=== PATIENT | female | born 1970 | race American Indian/Alaskan Native ===

== ENCOUNTER 2019-03-17 14:47 | Emergency (ER) | payer OTHER ==
--- NOTE | 2019-03-17 15:12 | Emergency Department Report ---
Chief Complaint: Chest Pain Stated Complaint: (L) SIDE PAIN Time Seen by Provider: 03/17/19 15:09 - HPI History of Present Illness: SHARP L SIDED CP FOR 2 DAYS NO SOB POS CIG POS ETOH NO DRUGS RX NONE PMH HX BELLS PALSY PSH CHOLEY BREAST FIBROID CSEC HERNIA MSE COMPLETED - Exam Vital Signs: Vital Signs 03/17/19 14:51 Temperature 97.8 F Pulse Rate 63 Respiratory 16 Rate Blood Pressure 132/75 O2 Sat by Pulse 100 Oximetry MSE screening note: Focused history and physical exam performed. Due to findings the following was ordered: ED Disposition for MSE Condition: Stable
[2019-03-17 15:52] LABS: Basophils # (Auto) 0.1 K/mm3 (0.0-0.1); Basophils % (Auto) 1.7 % (0.0-1.8); Eosinophils # (Auto) 0.1 K/mm3 (0.0-0.4); Eosinophils % (Auto) 3.1 % (0.0-4.3); Hematocrit 32.8 % (30.3-42.9); Lymphocytes # (Auto) 1.9 K/mm3 (1.2-5.4); Lymphocytes % (Auto) 43.8 % (13.4-35.0); Mean Corpuscular HGB Conc 33 % (30-34); Mean Corpuscular Volume 83 fl (79-97); Monocytes # (Auto) 0.3 K/mm3 (0.0-0.8); Monocytes % (Auto) 6.8 % (0.0-7.3); Platelet Count 253 K/mm3 (140-440); Red Blood Count 3.95 M/mm3 (3.65-5.03); Red Cell Distribution Width 18.2 % (13.2-15.2)
[2019-03-17] MEDS ORDERED: IBUPROFEN PO ONE (16:01)
[2019-03-17 16:07] LABS: Alanine Aminotransferase 10 units/L (7-56); Albumin 4.1 g/dL (3.9-5); BUN/Creatinine Ratio 10; Blood Urea Nitrogen 6 mg/dL (7-17); Calcium 9.3 mg/dL (8.4-10.2); Hemolysis Index 4
[2019-03-17 16:34] LABS: Bilirubin,Urine NEG (Negative); Blood,Urine NEG (Negative); Color,Urine Yellow (Yellow); Mucus,Urine FEW /HPF; Protein,Urine <15 mg/dL mg/dL (Negative); Urobilinogen,Urine < 2.0 mg/dL (<2.0)
--- NOTE | 2019-03-17 16:39 | XRay Report ---
PROCEDURE: XR CHEST ROUTINE 2V TECHNIQUE: PA and lateral views of the chest were obtained. HISTORY: Chest Pain COMPARISONS: None FINDINGS: Heart size and pulmonary vasculature appear normal. No evidence of pulmonary edema or pleural effusio n. No acute infiltrates or masses are seen. No acute bone abnormalities are identified. IMPRESSION: No evidence of acute cardiac or pulmonary process.. This document is electronically signed by Mike Mccurdy MD., March 17 2019 04:37:31 PM ET
--- NOTE | 2019-03-17 16:45 | Emergency Department Report ---
ED Chest Pain HPI - General Chief Complaint: Chest Pain Stated Complaint: (L) SIDE PAIN Time Seen by Provider: 03/17/19 15:09 Source: patient Mode of arrival: Ambulatory Limitations: No Limitations - History of Present Illness Initial Comments: Patient is a 48-year-old female who presents to ED complaining of left-sided chest pain radiating to her R shoulder and arm 2 days. Patient states that pain is aching in nature. She denies shortness of breath, fever, nausea vomiting, headache, trauma injuries or fall. MD Complaint: chest pain Severity scale (0 -10): 10 - Related Data Previous Rx's Medication Instructions Recorded Last Taken Type Carbamide Peroxide [Ear Wax 15 ml OT BID 4 Days #1 bottle 11/20/18 Unknown Rx Removal] Loperamide HCl [Imodium A-D] 2 mg PO DAILY #14 capsule 11/20/18 Unknown Rx Neomy/Polymyx B/Hc (Otic) Soln 4 drops TID 5 Days #1 bottle 11/20/18 Unknown Rx [Cortisporin (Otic) Soln] Ondansetron [Zofran Odt] 4 mg PO Q8HR PRN #8 tab.rapdis 11/20/18 Unknown Rx Naproxen [Naprosyn] 500 mg PO BID #30 tablet 03/17/19 Unknown Rx Allergies Allergy/AdvReac Type Severity Reaction Status Date / Time acetaminophen [From Percocet] Allergy Itching Verified 11/20/18 14:46 oxycodone [From Percocet] Allergy Itching Verified 11/20/18 14:46 Penicillins Allergy Itching Verified 11/20/18 14:46 propoxyphene Allergy Itching Verified 11/20/18 14:46 [From Darvocet-N] Heart Score - HEART Score History: Slightly suspicious EKG: Normal Age: 45-65 Risk factors: No known risk factors Troponin: < normal limit HEART Score: 1 ED Review of Systems ROS: Stated complaint: (L) SIDE PAIN Other details as noted in HPI Comment: All other systems reviewed and negative ED Past Medical Hx - Past Medical History Previous Medical History?: No - Surgical History Past Surgical History?: Yes Hx Cholecystectomy: Yes Hx Breast Surgery: Yes (reduction) Additional Surgical History: hernia repair. fibroid removal - Social History Smoking Status: Never Smoker Substance Use Type: Alcohol - Medications Home Medications: Home Medications Medication Instructions Recorded Confirmed Last Taken Type Carbamide Peroxide [Ear Wax 15 ml OT BID 4 Days #1 bottle 11/20/18 Unknown Rx Removal] Loperamide HCl [Imodium A-D] 2 mg PO DAILY #14 capsule 11/20/18 Unknown Rx Neomy/Polymyx B/Hc (Otic) Soln 4 drops TID 5 Days #1 bottle 11/20/18 Unknown Rx [Cortisporin (Otic) Soln] Ondansetron [Zofran Odt] 4 mg PO Q8HR PRN #8 tab.rapdis 11/20/18 Unknown Rx Naproxen [Naprosyn] 500 mg PO BID #30 tablet 03/17/19 Unknown Rx ED Physical Exam - General Limitations: No Limitations General appearance: alert, in no apparent distress - Head Head exam: Present: atraumatic, normocephalic - Eye Eye exam: Present: normal appearance - ENT ENT exam: Present: mucous membranes moist - Neck Neck exam: Present: normal inspection - Respiratory Respiratory exam: Present: normal lung sounds bilaterally, chest wall tenderness. Absent: respiratory distress - Cardiovascular Cardiovascular Exam: Present: regular rate, normal rhythm. Absent: systolic murmur, diastolic murmur, rubs, gallop - GI/Abdominal GI/Abdominal exam: Present: soft, normal bowel sounds - Extremities Exam Extremities exam: Present: normal inspection, full ROM - Back Exam Back exam: Present: normal inspection, full ROM. Absent: tenderness - Neurological Exam Neurological exam: Present: alert, oriented X3 - Psychiatric Psychiatric exam: Present: normal affect, normal mood - Skin Skin exam: Present: warm, dry, intact, normal color. Absent: rash ED Course Vital Signs 03/17/19 14:51 Temperature 97.8 F Pulse Rate 63 Respiratory 16 Rate Blood Pressure 132/75 O2 Sat by Pulse 100 Oximetry BOY score - Boy Score Age > 65: (0) No Aspirin use within the Past 7 Days: (0) No 3 or more CAD Risk Factors: (0) No 2 or more Angina events in past 24 hrs: (0) No Known CAD with more than 50% Stenosis: (0) No Elevated Cardiac Markers: (0) No ST Deviation Greater than 0.5mm: (0) No BOY Score: 0 ED Medical Decision Making - Lab Data Result diagrams: 03/17/19 15:32 03/17/19 15:32 - Radiology Data Radiology results: report reviewed, image reviewed HISTORY: Chest Pain COMPARISONS: None FINDINGS: Heart size and pulmonary vasculature appear normal. No evidence of pulmonary edema or pleural effusion. No acute infiltrates or masses are seen. No acute bone abnormalities are identified. IMPRESSION: No evidence of acute cardiac or pulmonary process.. This document is electronically signed by Mike Mccurdy MD., March 17 2019 04:37:31 PM ET Transcribed By: DFN Dictated By: MIKE MCCURDY MD Electronically Authenticated By: MIKE MCCURDY MD Signed Date/Time: 03/17/19 4497 Critical care attestation.: If time is entered above; I have spent that time in minutes in the direct care of this critically ill patient, excluding procedure time. ED Disposition Clinical Impression: Acute costochondritis, Atypical chest pain Disposition: -01 TO HOME OR SELFCARE Is pt being admited?: No Does the pt Need Aspirin: No Condition: Stable Instructions: Chest Pain (ED), Costochondritis (ED) Additional Instructions: Make sure to follow up with the primary care physician as discussed. Take all your medications as you've been prescribed. If you have any worsening symptoms or develop new symptoms please return to ED immediately. Prescriptions: Naproxen [Naprosyn] 500 mg PO BID #30 tablet Referrals: ANNITA FELICIANO MD [Primary Care Provider] - 3-5 Days Forms: Accompanied Note, Work/School Release Form(ED) Time of Disposition: 16:53
[2019-03-17] MEDS ORDERED: FLEXERIL PO ONE (17:01)
[2019-03-17 21:12] VITALS: BP 132/75
== END 2019-03-17 17:12 | disposition home or self-care (01) ==
LOC: ED 14:47
DX: M94.0 Chondrocostal junction syndrome [Tietze] (principal); Z88.0 Allergy status to penicillin; Z88.5 Allergy status to narcotic agent; Z90.49 Acquired absence of other specified parts of digestive tract
CPT/HCPCS: 36415; 71046; 80053; 81001; 84484; 85025; 93005; 93010; 99284

== ENCOUNTER 2020-09-20 06:22 | Emergency (ER) | payer SELFPAY ==
[2020-09-20 07:32] VITALS: BP 149/84
[2020-09-20 08:12] LABS: Bacteria,Urine 1+ /HPF (Negative); Bilirubin,Urine NEG (Negative); Blood,Urine MOD (Negative); Color,Urine Yellow (Yellow); Protein,Urine <15 mg/dL mg/dL (Negative)
[2020-09-20 08:20] LABS: Basophils % (Auto) 0.5 % (0.0-1.8); Eosinophils # (Auto) 0.3 K/mm3 (0.0-0.4); Eosinophils % (Auto) 5.2 % (0.0-4.3); Hematocrit 31.6 % (30.3-42.9); Hemoglobin 10.8 gm/dl (10.1-14.3); Lymphocytes # (Auto) 1.7 K/mm3 (1.2-5.4); Lymphocytes % (Auto) 32.6 % (13.4-35.0); Mean Corpuscular HGB Conc 34 % (30-34); Mean Corpuscular Volume 84 fl (79-97); Monocytes # (Auto) 0.6 K/mm3 (0.0-0.8); Platelet Count 218 K/mm3 (140-440); Red Blood Count 3.78 M/mm3 (3.65-5.03); Red Cell Distribution Width 16.8 % (13.2-15.2)
[2020-09-20 09:08] LABS: Alanine Aminotransferase 8 units/L (7-56); Albumin 3.6 g/dL (3.9-5); Blood Urea Nitrogen 8 mg/dL (7-17); Calcium 8.3 mg/dL (8.4-10.2); Hemolysis Index 4
[2020-09-20 09:14] LABS: BUN/Creatinine Ratio 13
--- NOTE | 2020-09-20 09:20 | Emergency Department Report ---
ED General Adult HPI - General Chief complaint: Abdominal Pain Stated complaint: ABDOMINAL PAIN Time Seen by Provider: 09/20/20 08:58 Source: patient Mode of arrival: Ambulatory Limitations: No Limitations - History of Present Illness Initial comments: This is a 50-year-old female who states that she did a home test and it was positive. She went to the emergency department last week and had a negative test. She states that her hemoglobin was 13 at that time. She returns to the emergency department stating she still lower abdominal pain. She has a history of the same associated with uterine fibroids. 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 She denies any difficulty urinating or any change in her bowel movements. She has had no fever or chills. She appears to be seeking follow-up in the emergency department in due to insurance issues. She states her last period was in June but she has had irregular bleeding since. She has no active bleeding. -: Gradual, week(s) Radiation: non-radiation Quality: dull Consistency: intermittent Improves with: none Worsens with: none Associated Symptoms: denies other symptoms Treatments Prior to Arrival: none - Related Data Previous Rx's Medication Instructions Recorded Last Taken Type Carbamide Peroxide [Ear Wax 15 ml OT BID 4 Days #1 bottle 11/20/18 Unknown Rx Removal] Loperamide HCl [Imodium A-D] 2 mg PO DAILY #14 capsule 11/20/18 Unknown Rx Neomy/Polymyx B/Hc (Otic) Soln 4 drops TID 5 Days #1 bottle 11/20/18 Unknown Rx [Cortisporin (Otic) Soln] Ondansetron [Zofran Odt] 4 mg PO Q8HR PRN #8 tab.rapdis 11/20/18 Unknown Rx Cyclobenzaprine [Flexeril] 10 mg PO QHS PRN #20 tablet 03/17/19 Unknown Rx Naproxen [Naprosyn] 500 mg PO BID #30 tablet 03/17/19 Unknown Rx Ferrous Gluconate [Ferrous 324 mg PO TID #20 tablet 09/20/20 Unknown Rx Gluconate 324 MG] Nitrofurantoin Carbon/M-Cryst 100 mg PO Q12HR #14 capsule 09/20/20 Unknown Rx [Macrobid CAP] traMADoL [Ultram 50 MG tab] 50 mg PO Q6HR PRN #10 tablet 09/20/20 Unknown Rx Allergies Allergy/AdvReac Type Severity Reaction Status Date / Time acetaminophen [From Percocet] Allergy Itching Verified 11/20/18 14:46 oxycodone [From Percocet] Allergy Itching Verified 11/20/18 14:46 Penicillins Allergy Itching Verified 11/20/18 14:46 propoxyphene Allergy Itching Verified 11/20/18 14:46 [From Darvocet-N] ED Review of Systems ROS: Stated complaint: ABDOMINAL PAIN Other details as noted in HPI Constitutional: denies: chills, fever Eyes: denies: eye pain, eye discharge, vision change ENT: denies: ear pain, throat pain Respiratory: denies: cough, shortness of breath, wheezing Cardiovascular: denies: chest pain, palpitations Endocrine: no symptoms reported Gastrointestinal: abdominal pain. denies: nausea, diarrhea Genitourinary: as per HPI, abnormal menses. denies: urgency, dysuria, discharge Musculoskeletal: denies: back pain, joint swelling, arthralgia Skin: denies: rash, lesions Neurological: denies: headache, weakness, paresthesias Psychiatric: denies: anxiety, depression Hematological/Lymphatic: denies: easy bleeding, easy bruising ED Past Medical Hx - Past Medical History Previous Medical History?: No - Surgical History Hx Cholecystectomy: Yes Hx Breast Surgery: Yes (reduction) Additional Surgical History: hernia repair. fibroid removal - Social History Smoking Status: Never Smoker Substance Use Type: None - Medications Home Medications: Home Medications Medication Instructions Recorded Confirmed Last Taken Type Carbamide Peroxide [Ear Wax 15 ml OT BID 4 Days #1 bottle 11/20/18 Unknown Rx Removal] Loperamide HCl [Imodium A-D] 2 mg PO DAILY #14 capsule 11/20/18 Unknown Rx Neomy/Polymyx B/Hc (Otic) Soln 4 drops TID 5 Days #1 bottle 11/20/18 Unknown Rx [Cortisporin (Otic) Soln] Ondansetron [Zofran Odt] 4 mg PO Q8HR PRN #8 tab.rapdis 11/20/18 Unknown Rx Cyclobenzaprine [Flexeril] 10 mg PO QHS PRN #20 tablet 03/17/19 Unknown Rx Naproxen [Naprosyn] 500 mg PO BID #30 tablet 03/17/19 Unknown Rx Ferrous Gluconate [Ferrous 324 mg PO TID #20 tablet 09/20/20 Unknown Rx Gluconate 324 MG] Nitrofurantoin Carbon/M-Cryst 100 mg PO Q12HR #14 capsule 09/20/20 Unknown Rx [Macrobid CAP] traMADoL [Ultram 50 MG tab] 50 mg PO Q6HR PRN #10 tablet 09/20/20 Unknown Rx ED Physical Exam - General Limitations: No Limitations General appearance: alert, in no apparent distress - Head Head exam: Present: atraumatic, normocephalic - Eye Eye exam: Present: normal appearance. Absent: scleral icterus - ENT ENT exam: Present: mucous membranes moist - Neck Neck exam: Present: normal inspection - Respiratory Respiratory exam: Present: normal lung sounds bilaterally. Absent: respiratory distress - Cardiovascular Cardiovascular Exam: Present: regular rate, normal rhythm. Absent: systolic murmur, diastolic murmur, rubs, gallop - GI/Abdominal GI/Abdominal exam: Present: soft, normal bowel sounds. Absent: distended, tenderness, guarding, rebound, rigid - Extremities Exam Extremities exam: Present: normal inspection - Back Exam Back exam: Present: normal inspection - Neurological Exam Neurological exam: Present: alert, oriented X3, CN II-XII intact. Absent: motor sensory deficit - Psychiatric Psychiatric exam: Present: normal affect, normal mood - Skin Skin exam: Present: warm, dry, intact, normal color. Absent: rash ED Course Vital Signs 09/20/20 07:30 Temperature 98.1 F Pulse Rate 55 L Respiratory 18 Rate Blood Pressure 149/84 O2 Sat by Pulse 100 Oximetry - Reevaluation(s) Reevaluation #1: 09/20/20 09:29 Patient found to be comfortable on reexamination. I have explained to follow-up plan and the therapeutic interventions. ED Medical Decision Making - Lab Data Result diagrams: 09/20/20 08:00 09/20/20 08:00 Laboratory Results - last 24 hr 09/20/20 09/20/20 09/20/20 08:00 08:00 Unknown WBC 5.3 RBC 3.78 Hgb 10.8 Hct 31.6 MCV 84 MCH 29 MCHC 34 RDW 16.8 H Plt Count 218 Lymph % (Auto) 32.6 Carbon % (Auto) 11.0 H Eos % (Auto) 5.2 H Baso % (Auto) 0.5 Lymph # (Auto) 1.7 Carbon # (Auto) 0.6 Eos # (Auto) 0.3 Baso # (Auto) 0.0 Seg Neutrophils % 50.7 Seg Neutrophils # 2.7 Sodium 142 Potassium 3.6 Chloride 105.2 Carbon Dioxide 21 L Anion Gap 19 BUN 8 Creatinine 0.6 Estimated GFR > 60 BUN/Creatinine Ratio 13 Glucose 101 H Calcium 8.3 L Total Bilirubin 0.30 AST 10 ALT 8 Alkaline Phosphatase 61 Total Protein 6.6 Albumin 3.6 L Albumin/Globulin Ratio 1.2 Urine Color Yellow Urine Turbidity Clear Urine pH 6.0 Ur Specific Bradford 1.012 Urine Protein <15 mg/dl Urine Glucose (UA) Neg Urine Ketones Neg Urine Blood Mod Urine Nitrite Neg Urine Bilirubin Neg Urine Urobilinogen 2.0 Ur Leukocyte Esterase Lg Urine WBC (Auto) 27.0 H Urine RBC (Auto) 3.0 U Epithel Cells (Auto) 6.0 Urine Bacteria (Auto) 1+ Critical care attestation.: If time is entered above; I have spent that time in minutes in the direct care of this critically ill patient, excluding procedure time. ED Disposition Clinical Impression: Lower abdominal pain, DUB (dysfunctional uterine bleeding) Acute cystitis Qualifiers: Hematuria presence: without hematuria Qualified Code(s): N30.00 - Acute cystitis without hematuria Disposition: TO HOME OR SELFCARE Is pt being admited?: No Does the pt Need Aspirin: No Condition: Stable Instructions: Abdominal Pain (ED), Urinary Tract Infection in Women (ED) Additional Instructions: I suspect you do have recurrent fibroids. Iron replacement as recommended Rx written. It does look like you have a urinary tract infection. The culture that will be ready in 2 to 3 days will confirm it and verify that you are on the right medication. Follow-up on that. Rx Ultram for discomfort as needed. Return to the emergency department any acute change or problem. Prescriptions: Ferrous Gluconate [Ferrous Gluconate 324 MG] 324 mg PO TID #20 tablet Nitrofurantoin Carbon/M-Cryst [Macrobid CAP] 100 mg PO Q12HR #14 capsule traMADoL [Ultram 50 MG tab] 50 mg PO Q6HR PRN #10 tablet PRN Reason: Pain Referrals: PRIMARY CAREMD [Primary Care Provider] - 3-5 Days MAGNO ROSALES MD [Staff Physician] - 3-5 Days [facility] [Provider Group] - 2-3 Days Time of Disposition: 09:33
== END 2020-09-20 09:36 | disposition home or self-care (01) ==
LOC: ED 06:22
DX: N30.00 Acute cystitis without hematuria (principal); N93.8 Other specified abnormal uterine and vaginal bleeding
CPT/HCPCS: 36415; 80053; 81001; 85025; 87076; 87086; 87186

== ENCOUNTER 2020-10-31 21:22 | Inpatient (IN) | payer OTHER ==
[2020-10-31 22:51] LABS: Basophils # (Auto) 0.1 K/mm3 (0.0-0.1); Basophils % (Auto) 1.2 % (0.0-1.8); Eosinophils # (Auto) 0.2 K/mm3 (0.0-0.4); Eosinophils % (Auto) 3.4 % (0.0-4.3); Hematocrit 34.6 % (30.3-42.9); Hemoglobin 11.5 gm/dl (10.1-14.3); Lymphocytes # (Auto) 1.3 K/mm3 (1.2-5.4); Mean Corpuscular HGB Conc 33 % (30-34); Mean Corpuscular Volume 84 fl (79-97); Monocytes # (Auto) 0.5 K/mm3 (0.0-0.8); Platelet Count 224 K/mm3 (140-440); Red Blood Count 4.12 M/mm3 (3.65-5.03)
--- NOTE | 2020-10-31 23:03 | XRay Report ---
CHEST 2 VIEWS INDICATION: Chest Pain. COMPARISON: 03/17/2019 FINDINGS: SUPPORT DEVICES: None. HEART: Within normal limits. LUNGS/PLEURA: Minimal streaky left basilar airspace disease. Otherwise clear lungs. No pneumothorax. ADDITIONAL FINDINGS: None. IMPRESSION: 1. Pulmonary findings as above. Signer Name: Jose Pace MD Signed: 10/31/2020 10:58 PM Workstation Name: [id number]
[2020-10-31 23:12] LABS: Blood Urea Nitrogen 7 mg/dL (7-17); Hemolysis Index 0
[2020-10-31 23:25] LABS: BUN/Creatinine Ratio 10
[2020-11-01] MEDS ORDERED: KETOROLAC 30 MG/1 ML INJ IV ONE ×2 (00:20→09:57)
[2020-11-01] MEDS ORDERED: POTASSIUM CHLORIDE ER 20 MEQ TAB PO ONE (10:02)
--- NOTE | 2020-11-01 10:02 | Emergency Department Report ---
ED Chest Pain HPI - General Chief Complaint: Chest Pain Stated Complaint: LEFT CHEST AND LEFT SIDE PAIN Time Seen by Provider: 11/01/20 09:39 Source: patient Mode of arrival: Ambulatory Limitations: No Limitations - History of Present Illness Initial Comments: 50-year-old female, no past medical history, presents to ED with left-sided chest pain x3 days. Patient reports some pleuritic component to the pain as well. She denies any cough or fever. She reports some mild shortness of breath. She denies any leg pain or swelling. She denies any known contact with anyone who was tested positive for COVID-19. Patient denies any tobacco use. MD Complaint: chest pain -: days(s) (3) Onset: during rest Pain Location: left chest Pain Radiation: back, neck Severity: moderate Severity scale (0 -10): 1 Quality: sharp Consistency: intermittent Improves With: nothing Worsens With: inspiration re: dyspnea. denies: nausea, vomting Other Symptoms: denies: cough, fever, leg swelling - Related Data Previous Rx's Medication Instructions Recorded Last Taken Type Carbamide Peroxide [Ear Wax 15 ml OT BID 4 Days #1 bottle 11/20/18 Unknown Rx Removal] Loperamide HCl [Imodium A-D] 2 mg PO DAILY #14 capsule 11/20/18 Unknown Rx Neomy/Polymyx B/Hc (Otic) Soln 4 drops TID 5 Days #1 bottle 11/20/18 Unknown Rx [Cortisporin (Otic) Soln] Ondansetron [Zofran Odt] 4 mg PO Q8HR PRN #8 tab.rapdis 11/20/18 Unknown Rx Cyclobenzaprine [Flexeril] 10 mg PO QHS PRN #20 tablet 03/17/19 Unknown Rx Naproxen [Naprosyn] 500 mg PO BID #30 tablet 03/17/19 Unknown Rx Ferrous Gluconate [Ferrous 324 mg PO TID #20 tablet 09/20/20 Unknown Rx Gluconate 324 MG] Nitrofurantoin White/M-Cryst 100 mg PO Q12HR #14 capsule 09/20/20 Unknown Rx [Macrobid CAP] traMADoL [Ultram 50 MG tab] 50 mg PO Q6HR PRN #10 tablet 09/20/20 Unknown Rx Allergies Allergy/AdvReac Type Severity Reaction Status Date / Time acetaminophen [From Percocet] Allergy Itching Verified 11/20/18 14:46 oxycodone [From Percocet] Allergy Itching Verified 11/20/18 14:46 Penicillins Allergy Itching Verified 11/20/18 14:46 propoxyphene Allergy Itching Verified 11/20/18 14:46 [From Darvocet-N] Heart Score - HEART Score History: Slightly suspicious EKG: Non-specific Age: 45-65 Risk factors: 1-2 risk factors Troponin: < normal limit HEART Score: 3 ED Review of Systems ROS: Stated complaint: LEFT CHEST AND LEFT SIDE PAIN Other details as noted in HPI Comment: All other systems reviewed and negative Constitutional: denies: chills, fever Respiratory: shortness of breath. denies: cough Cardiovascular: chest pain Gastrointestinal: denies: abdominal pain, nausea, vomiting, diarrhea Musculoskeletal: other (Denies leg pain and swelling) ED Past Medical Hx - Past Medical History Previous Medical History?: No - Surgical History Past Surgical History?: Yes Hx Cholecystectomy: Yes Hx Breast Surgery: Yes (reduction) Additional Surgical History: hernia repair. fibroid removal - Social History Smoking Status: Current Some Day Smoker Substance Use Type: Marijuana - Medications Home Medications: Home Medications Medication Instructions Recorded Confirmed Last Taken Type Carbamide Peroxide [Ear Wax 15 ml OT BID 4 Days #1 bottle 11/20/18 Unknown Rx Removal] Loperamide HCl [Imodium A-D] 2 mg PO DAILY #14 capsule 11/20/18 Unknown Rx Neomy/Polymyx B/Hc (Otic) Soln 4 drops TID 5 Days #1 bottle 11/20/18 Unknown Rx [Cortisporin (Otic) Soln] Ondansetron [Zofran Odt] 4 mg PO Q8HR PRN #8 tab.rapdis 11/20/18 Unknown Rx Cyclobenzaprine [Flexeril] 10 mg PO QHS PRN #20 tablet 03/17/19 Unknown Rx Naproxen [Naprosyn] 500 mg PO BID #30 tablet 03/17/19 Unknown Rx Ferrous Gluconate [Ferrous 324 mg PO TID #20 tablet 09/20/20 Unknown Rx Gluconate 324 MG] Nitrofurantoin White/M-Cryst 100 mg PO Q12HR #14 capsule 09/20/20 Unknown Rx [Macrobid CAP] traMADoL [Ultram 50 MG tab] 50 mg PO Q6HR PRN #10 tablet 09/20/20 Unknown Rx ED Physical Exam - General Limitations: No Limitations General appearance: alert, in no apparent distress - Head Head exam: Present: atraumatic, normocephalic - Eye Eye exam: Present: normal appearance, EOMI - ENT ENT exam: Present: mucous membranes moist - Neck Neck exam: Present: normal inspection - Respiratory Respiratory exam: Present: normal lung sounds bilaterally, chest wall tenderness (Mild, left lateral). Absent: respiratory distress - Cardiovascular Cardiovascular Exam: Present: regular rate, normal rhythm - GI/Abdominal GI/Abdominal exam: Present: soft. Absent: distended, tenderness - Extremities Exam Extremities exam: Present: normal inspection. Absent: pedal edema, calf tendern ess - Neurological Exam Neurological exam: Present: alert, oriented X3 - Psychiatric Psychiatric exam: Present: normal affect, normal mood - Skin Skin exam: Present: warm, dry, intact, normal color. Absent: rash ED Course Vital Signs 10/31/20 11/01/20 11/01/20 22:11 09:21 09:24 Temperature 99.8 F H 98.3 F Pulse Rate 76 64 Respiratory 17 18 Rate Blood Pressure 142/78 Blood Pressure 142/71 [Right] O2 Sat by Pulse 98 98 100 Oximetry 11/01/20 11/01/20 11/01/20 09:31 09:45 10:01 Temperature Pulse Rate 64 66 64 Respiratory 23 23 20 Rate Blood Pressure 142/71 142/71 127/68 Blood Pressure [Right] O2 Sat by Pulse 98 98 97 Oximetry 11/01/20 11/01/20 11/01/20 10:15 10:18 10:31 Temperature Pulse Rate 81 65 Respiratory 16 13 14 Rate Blood Pressure 127/68 142/71 Blood Pressure [Right] O2 Sat by Pulse 99 100 Oximetry 11/01/20 11/01/20 11/01/20 10:45 11:05 11:15 Temperature Pulse Rate Respiratory Rate Blood Pressure 142/71 142/71 142/71 Blood Pressure [Right] O2 Sat by Pulse 99 97 99 Oximetry 11/01/20 11/01/20 11/01/20 11:31 11:45 12:01 Temperature Pulse Rate Respiratory Rate Blood Pressure 127/68 127/68 129/85 Blood Pressure [Right] O2 Sat by Pulse 98 98 96 Oximetry 11/01/20 11/01/20 12:15 12:31 Temperature Pulse Rate Respiratory Rate Blood Pressure 129/85 129/85 Blood Pressure [Right] O2 Sat by Pulse 97 98 Oximetry TIFFANY score - Tiffany Score Age > 65: (0) No Aspirin use within the Past 7 Days: (0) No 3 or more CAD Risk Factors: (0) No 2 or more Angina events in past 24 hrs: (0) No Known CAD with more than 50% Stenosis: (0) No Elevated Cardiac Markers: (0) No ST Deviation Greater than 0.5mm: (0) No TIFFANY Score: 0 ED Medical Decision Making - Lab Data Result diagrams: 10/31/20 22:39 10/31/20 22:39 - EKG Data -: EKG Interpreted by Ia EKG shows normal: sinus rhythm, axis, intervals, QRS complexes, ST-T waves Rate: normal - EKG Data Interpretation: no acute changes - Radiology Data Radiology results: report reviewed, image reviewed - Medical Decision Making 50-year-old female presents to ED with left sided chest pain, pleuritic in nature, for 3 days. Vital signs including O2 sats are normal. EKG shows no ST changes. Troponin negative x2. Due to pleuritic component of chest pain, CT was ordered. It shows multiple filling defects throughout both lungs with the largest burden in the left lower lobe. Heparin drip initiated. Patient will be admitted by hospitalist, Dr. Shields, for further management. - Differential Diagnosis ACS, pneumonia, PE Critical Care Time: Yes Critical care time in (mins) excluding proc time.: 35 Critical care attestation.: If time is entered above; I have spent that time in minutes in the direct care of this critically ill patient, excluding procedure time. Critical Care Time: 35 min ED Disposition Clinical Impression: Pulmonary emboli Disposition: [id number] OP ADMIT IP TO THIS HOSP Is pt being admited?: Yes Condition: Stable Time of Disposition: 12:22
[2020-11-01] MEDS ORDERED: HEPARIN 10,000 UNITS/10 ML VIAL IV ONE ×2 (12:15→20:54)
--- NOTE | 2020-11-01 12:20 | Cat Scan Report ---
CTA CHEST WITH IV CONTRAST INDICATION / CLINICAL INFORMATION: left chest pain. TECHNIQUE: Axial CT images were obtained through the chest after injection of 100 ML Omnipaque IV contrast. 3 pl ane MIP and/or 3D reconstructions were produced. All CT scans at this location are performed using CT dose reduction for ALARA by means of automated exposure control. COMPARISON: None available. FINDINGS: PULMONARY ARTERIES: Multiple filling defects are present throughout both lungs largest burden left lo wer lobe THORACIC AORTA: No significant abnormality. HEART: No significant abnormality. CORONARY ARTERIES: No significant calcification. PLEURA: No pleural effusion. No pneumothorax. LYMPH NODES: No significant adenopathy. LUNGS: Patchy parenchymal changes present peripheral aspect lingular segment left upper lobe. Scarrin g right middle lobe with an element of bronchiectasis ADDITIONAL FINDINGS: None. UPPER ABDOMEN: No acute findings. SKELETAL STRUCTURES: No significant osseous abnormality. IMPRESSION: 1. Pulmonary embolic disease as described 2. Patchy parenchymal changes lingular segment left upper lobe questionable pulmonary infarct CRITICAL RESULT: Time of Discovery: 1040 Central time Time of Communication: 1100 Central time Licensed Practitioner Receiving Report: Dr. Jenkins was notified of these findings personally by Dr. Morris Read Back Performed: Yes. Signer Name: Theo Morris MD Signed: 11/01/2020 12:15 PM Workstation Name: [id number]
[2020-11-01] MEDS ORDERED: HEPARIN/ 0.45% NACL DRIP 25,000 UNIT/500 ML BAG IV SCH (13:00)
[2020-11-01 15:18] LABS: Hematocrit 32.1 % (30.3-42.9); Hemoglobin 10.6 gm/dl (10.1-14.3)
[2020-11-01 15:29] LABS: INR 1.08 (0.87-1.13)
[2020-11-01 15:32] LABS: Partial Thromboplastin Time 81.6 Sec. (24.2-36.6)
--- NOTE | 2020-11-02 00:53 | History and Physical Report ---
History of Present Illness Date of examination: 11/01/20 Date of admission: 11/01/20 12:23 Chief complaint: Shortness of breath and left-sided chest pain for 3days History of present illness: 50-year-old -[place] female comes in for left-sided chest pain of 3 days duration. Chest pain more on deep inspiration. Also shortness of breath present. No cough or fever. No exposure to coronavirus. No diaphoresis no palpitations. No coronary artery disease history. Heart Score - HEART Score History: Slightly suspicious EKG: Non-specific Age: 45-65 Risk factors: 1-2 risk factors Troponin: < normal limit HEART Score: 3 - Past Medical History Previous Medical History?: No - Surgical History Past Surgical History?: Yes ==Cholecystectomy: Yes ==Breast Surgery: Yes (reduction) Additional Surgical History: hernia repair. fibroid removal - Social History Smoking Status: Current Some Day Smoker Substance Use Type: Marijuana - Medications Home Medications: Home Medications Medication Instructions Recorded Confirmed Last Taken Type Carbamide Peroxide [Ear Wax 15 ml OT BID 4 Days #1 bottle 11/20/18 Unknown Rx Removal] Loperamide HCl [Imodium A-D] 2 mg PO DAILY #14 capsule 11/20/18 Unknown Rx Neomy/Polymyx B/Hc (Otic) Soln 4 drops TID 5 Days #1 bottle 11/20/18 Unknown Rx [Cortisporin (Otic) Soln] Ondansetron [Zofran Odt] 4 mg PO Q8HR PRN #8 tab.rapdis 11/20/18 Unknown Rx Cyclobenzaprine [Flexeril] 10 mg PO QHS PRN #20 tablet 03/17/19 Unknown Rx Naproxen [Naprosyn] 500 mg PO BID #30 tablet 03/17/19 Unknown Rx Ferrous Gluconate [Ferrous 324 mg PO TID #20 tablet 09/20/20 Unknown Rx Gluconate 324 MG] Nitrofurantoin [place]/M-Cryst 100 mg PO Q12HR #14 capsule 09/20/20 Unknown Rx [Macrobid CAP] traMADoL [Ultram 50 MG tab] 50 mg PO Q6HR PRN #10 tablet 09/20/20 Unknown Rx Review of Systems ROS: Stated complaint: LEFT CHEST AND LEFT SIDE PAIN Other details as noted in HPI Comment: All other systems reviewed and negative Constitutional: denies: chills, fever Respiratory: shortness of breath. denies: cough Cardiovascular: chest pain Gastrointestinal: denies: abdominal pain, nausea, vomiting, diarrhea Musculoskeletal: other (Denies leg pain and swelling) Medications and Allergies Allergies Allergy/AdvReac Type Severity Reaction Status Date / Time acetaminophen [From Percocet] Allergy Itching Verified 11/20/18 14:46 oxycodone [From Percocet] Allergy Itching Verified 11/20/18 14:46 Penicillins Allergy Itching Verified 11/20/18 14:46 propoxyphene Allergy Itching Verified 11/20/18 14:46 [From Darvocet-N] Home Medications Medication Instructions Recorded Confirmed Last Taken Type Carbamide Peroxide [Ear Wax 15 ml OT BID 4 Days #1 bottle 11/20/18 Unknown Rx Removal] Loperamide HCl [Imodium A-D] 2 mg PO DAILY #14 capsule 11/20/18 Unknown Rx Neomy/Polymyx B/Hc (Otic) Soln 4 drops TID 5 Days #1 bottle 11/20/18 Unknown Rx [Cortisporin (Otic) Soln] Ondansetron [Zofran Odt] 4 mg PO Q8HR PRN #8 tab.rapdis 11/20/18 Unknown Rx Cyclobenzaprine [Flexeril] 10 mg PO QHS PRN #20 tablet 03/17/19 Unknown Rx Naproxen [Naprosyn] 500 mg PO BID #30 tablet 03/17/19 Unknown Rx Ferrous Gluconate [Ferrous 324 mg PO TID #20 tablet 09/20/20 Unknown Rx Gluconate 324 MG] Nitrofurantoin [place]/M-Cryst 100 mg PO Q12HR #14 capsule 09/20/20 Unknown Rx [Macrobid CAP] traMADoL [Ultram 50 MG tab] 50 mg PO Q6HR PRN #10 tablet 09/20/20 Unknown Rx Active Meds: Active Medications Heparin Sodium/Sodium Chloride (Heparin/ 0.45% Nacl-25,000 Unit/500 Ml) 25,000 unit in 500 mls @ 29 mls/hr IV TITR CATRACHITO; Protocol Last Titration: 11/01/20 20:56 Dose: 1,700 units/hr, 34 mls/hr Documented by: Ketorolac Tromethamine (Toradol) 15 mg IV ONCE ONE Stop: 11/02/20 01:01 Exam - Constitutional Vitals: Temp Pulse Resp BP Pulse Ox 98.5 F 65 14 129/66 94 11/01/20 23:49 11/01/20 23:49 11/01/20 23:49 11/01/20 23:49 11/01/20 23:49 General appearance: Present: no acute distress, well-nourished - EENT Eyes: Present: PERRL ENT: hearing intact, clear oral mucosa - Neck Neck: Present: supple, normal ROM - Respiratory Respiratory effort: normal Respiratory: bilateral: CTA, rhonchi (Scattered) - Cardiovascular Heart rate: 78 Rhythm: regular Heart Sounds: Present: S1 & S2. Absent: rub, click - Extremities Extremities: pulses symmetrical, No edema Peripheral Pulses: within normal limits - Abdominal General gastrointestinal: Present: soft, non-tender, non-distended, normal bowel sounds Female genitourinary: Present: normal - Integumentary Integumentary: Present: clear, warm, dry - Musculoskeletal Musculoskeletal: gait normal, strength equal bilaterally - Psychiatric Psychiatric: appropriate mood/affect, intact judgment & insight - Neurologic Neurologic: CNII-XII intact, moves all extremities HEART Score - HEART Score EKG: Non-specific Age: 45-65 Risk factors: 1-2 risk factors Troponin: Troponin T < 0.010 ng/mL (0.00-0.029) 11/01/20 01:28 Troponin: < normal limit Results - Labs CBC & Chem 7: 11/01/20 14:46 10/31/20 22:39 Labs: Laboratory Last Values WBC 6.6 K/mm3 (4.5-11.0) 10/31/20 22:39 RBC 4.12 M/mm3 (3.65-5.03) 10/31/20 22:39 Hgb 10.6 gm/dl (10.1-14.3) 11/01/20 14:46 Hct 32.1 % (30.3-42.9) 11/01/20 14:46 MCV 84 fl (79-97) 10/31/20 22:39 MCH 28 pg (28-32) 10/31/20 22:39 MCHC 33 % (30-34) 10/31/20 22:39 RDW 17.0 % (13.2-15.2) H 10/31/20 22:39 Plt Count 228 K/mm3 (140-440) 11/01/20 14:46 Lymph % (Auto) 19.0 % (13.4-35.0) 10/31/20 22:39 Gray % (Auto) 8.0 % (0.0-7.3) H 10/31/20 22:39 Eos % (Auto) 3.4 % (0.0-4.3) 10/31/20 22:39 Baso % (Auto) 1.2 % (0.0-1.8) 10/31/20 22:39 Lymph # (Auto) 1.3 K/mm3 (1.2-5.4) 10/31/20 22:39 Gray # (Auto) 0.5 K/mm3 (0.0-0.8) 10/31/20 22:39 Eos # (Auto) 0.2 K/mm3 (0.0-0.4) 10/31/20 22:39 Baso # (Auto) 0.1 K/mm3 (0.0-0.1) 10/31/20 22:39 Seg Neutrophils % 68.4 % (40.0-70.0) 10/31/20 22:39 Seg Neutrophils # 4.5 K/mm3 (1.8-7.7) 10/31/20 22:39 PT 13.8 Sec. (12.2-14.9) 11/01/20 14:46 INR 1.08 (0.87-1.13) 11/01/20 14:46 APTT 81.6 Sec. (24.2-36.6) H* 11/01/20 14:46 Heparin Anti-Xa Level 0.10 U.I./ml (0.3-0.7) L 11/01/20 19:46 Sodium 139 mmol/L (137-145) 10/31/20 22:39 Potassium 3.4 mmol/L (3.6-5.0) L 10/31/20 22:39 Chloride 103.1 mmol/L (98-107) 10/31/20 22:39 Carbon Dioxide 25 mmol/L (22-30) 10/31/20 22:39 Anion Gap 14 mmol/L 10/31/20 22:39 BUN 7 mg/dL (7-17) 10/31/20 22:39 Creatinine 0.7 mg/dL (0.6-1.2) 10/31/20 22:39 Estimated GFR > 60 ml/min 10/31/20 22:39 BUN/Creatinine Ratio 10 % 10/31/20 22:39 Glucose 105 mg/dL (65-100) H 10/31/20 22:39 Calcium 9.0 mg/dL (8.4-10.2) 10/31/20 22:39 Troponin T < 0.010 ng/mL (0.00-0.029) 11/01/20 01:28 - Imaging and Cardiology EKG: report reviewed (Sinus rhythm no acute ST-T wave changes) Chest x-ray: report reviewed (No acute findings) Imaging and Cardiology: CTA chest FINDINGS: PULMONARY ARTERIES: Multiple filling defects are present throughout both lungs largest burden left lower lobe THORACIC AORTA: No significant abnormality. HEART: No significant abnormality. CORONARY ARTERIES: No significant calcification. PLEURA: No pleural effusion. No pneumothorax. LYMPH NODES: No significant adenopathy. LUNGS: Patchy parenchymal changes present peripheral aspect lingular segment left upper lobe. Scarring right middle lobe with an element of bronchiectasis ADDITIONAL FINDINGS: None. UPPER ABDOMEN: No acute findings. SKELETAL STRUCTURES: No significant osseous abnormality . IMPRESSION: 1. Pulmonary embolic disease as described 2. Patchy parenchymal changes lingular segment left upper lobe questionable pulmonary infarct Mccrary/IV: IV Catheter Type [Left Medial INT / [place] Antecubital] Assessment and Plan Advance Directives: Yes (Full code) Plan of care discussed with patient/family: Yes - Patient Problems (1) Acute pulmonary embolism Current Visit: Yes Status: Acute Qualifiers: Acute cor pulmonale presence: without acute cor pulmonale Plan to address problem: IV heparin for now IR consult Patient may not be a candidate for EKOS (2) Hypokalemia Current Visit: Yes Status: Acute Plan to address problem: Supplemented (3) DVT prophylaxis Current Visit: Yes Status: Acute Plan to address problem: Patient on heparin drip and GI prophylaxis
[2020-11-02] MEDS ORDERED: KETOROLAC 30 MG/1 ML INJ IV ONE (01:00)
[2020-11-02] MEDS ORDERED: ONDANSETRON 4 MG/2 ML INJ IV PRN (01:05)
[2020-11-02] MEDS ORDERED: ACETAMINOPHEN 325 MG TAB PO PRN (01:05)
[2020-11-02] MEDS ORDERED: oxyCODONE /ACETAMINOPHEN 5-325MG TAB PO PRN (01:05)
[2020-11-02 03:16] LABS: Basophils # (Auto) 0.1 K/mm3 (0.0-0.1); Eosinophils # (Auto) 0.3 K/mm3 (0.0-0.4); Hematocrit 29.9 % (30.3-42.9); Hemoglobin 10.2 gm/dl (10.1-14.3); Lymphocytes # (Auto) 1.6 K/mm3 (1.2-5.4); Lymphocytes % (Auto) 31.2 % (13.4-35.0); Mean Corpuscular HGB Conc 34 % (30-34); Mean Corpuscular Volume 83 fl (79-97); Monocytes # (Auto) 0.4 K/mm3 (0.0-0.8); Monocytes % (Auto) 7.8 % (0.0-7.3); Platelet Count 236 K/mm3 (140-440); Red Blood Count 3.61 M/mm3 (3.65-5.03); Red Cell Distribution Width 16.8 % (13.2-15.2)
[2020-11-02 03:32] LABS: Alanine Aminotransferase 6 units/L (7-56); Albumin 3.4 g/dL (3.9-5); Blood Urea Nitrogen 6 mg/dL (7-17); Calcium 8.7 mg/dL (8.4-10.2); Hemolysis Index 0
[2020-11-02 03:39] LABS: BUN/Creatinine Ratio 9
[2020-11-02] MEDS ORDERED: HEPARIN 10,000 UNITS/10 ML VIAL IV ONE (04:18)
[2020-11-02] MEDS: HYDROmorphone 1 MG/1 ML INJ IV PRN ×2 (09:35→17:42)
--- NOTE | 2020-11-02 15:00 | Consultation ---
History of Present Illness - Reason for Consult Consult date: 11/02/20 Pulmonary Embolus Requesting physician: ANAND RAMSEY - History of Present Illness The patient is a 50-year-old female who presented to the emergency room with complaints of left chest pain. She states the chest pain started on Saturday however she believed it was related to gas or indigestion. She did have shortness of breath however this was only associated with climbing stairs. She states the shortness of breath and chest pain continued throughout the weekend as well as on Saturday and Saturday while she was at work. This prompted her to present to the emergency department Saturday where her work-up revealed bilateral pulmonary emboli with a greater thrombus burden in the left main pulmonary artery. She denies any previous history of DVT or PE. She denies any history of hypercoagulable state or any recent surgery, prolonged bedrest, or recent travel. She has no additional complaints at this time. Past History Past Medical History: other (Uterine fibroids) Past Surgical History: cholecystectomy, (X2), hernia repair (Umbilical hernia repair as a child), Other (Uterine fibroidectomy) Social history: no significant social history Family history: no significant family history Medications and Allergies Allergies Allergy/AdvReac Type Severity Reaction Status Date / Time acetaminophen [From Percocet] Allergy Itching Verified 11/20/18 14:46 oxycodone [From Percocet] Allergy Itching Verified 11/20/18 14:46 Penicillins Allergy Itching Verified 11/20/18 14:46 propoxyphene Allergy Itching Verified 11/20/18 14:46 [From Darvocet-N] Home Medications Medication Instructions Recorded Confirmed Last Taken Type Carbamide Peroxide [Ear Wax 15 ml OT BID 4 Days #1 bottle 11/20/18 Unknown Rx Removal] Loperamide HCl [Imodium A-D] 2 mg PO DAILY #14 capsule 11/20/18 Unknown Rx Neomy/Polymyx B/Hc (Otic) Soln 4 drops TID 5 Days #1 bottle 11/20/18 Unknown Rx [Cortisporin (Otic) Soln] Ondansetron [Zofran Odt] 4 mg PO Q8HR PRN #8 tab.rapdis 11/20/18 Unknown Rx Cyclobenzaprine [Flexeril] 10 mg PO QHS PRN #20 tablet 03/17/19 Unknown Rx Naproxen [Naprosyn] 500 mg PO BID #30 tablet 03/17/19 Unknown Rx Ferrous Gluconate [Ferrous 324 mg PO TID #20 tablet 09/20/20 Unknown Rx Gluconate 324 MG] Nitrofurantoin [place]/M-Cryst 100 mg PO Q12HR #14 capsule 09/20/20 Unknown Rx [Macrobid CAP] traMADoL [Ultram 50 MG tab] 50 mg PO Q6HR PRN #10 tablet 09/20/20 Unknown Rx Active Meds: Active Medications Acetaminophen (Tylenol) 650 mg PO Q4H PRN PRN Reason: Pain MILD(1-3)/Fever >100.5/CABRERA Hydromorphone HCl (Dilaudid) 0.5 mg IV Q3H PRN PRN Reason: Pain , Severe (7-10) Last Admin: 11/02/20 09:35 Dose: 0.5 mg Documented by: Heparin Sodium/Sodium Chloride (Heparin/ 0.45% Nacl-25,000 Unit/500 Ml) 25,000 unit in 500 mls @ 29 mls/hr IV TITR CATRACHITO; Protocol Last Titration: 11/02/20 04:20 Dose: 2,000 units/hr, 40 mls/hr Documented by: Ondansetron HCl (Zofran) 4 mg IV Q8H PRN PRN Reason: Nausea And Vomiting Sodium Chloride (Sodium Chloride Flush Syringe 10 Ml) 10 ml IV BID [facility] Last Admin: 11/02/20 09:16 Dose: Not Given Documented by: Sodium Chloride (Sodium Chloride Flush Syringe 10 Ml) 10 ml IV PRN PRN PRN Reason: LINE FLUSH Review of Systems All systems: negative Exam - Constitutional Vitals: Temp Pulse Resp BP Pulse Ox 98.1 F 63 16 139/48 99 11/02/20 03:16 11/02/20 14:28 11/02/20 08:01 11/02/20 03:16 11/02/20 08:01 General appearance: Present: no acute distress - Neck Neck: Present: supple - Respiratory Respiratory effort: normal (Nonlabored breathing on room air) - Cardiovascular Rhythm: regular - Extremities Extremities: no ischemia, pulses intact Extremity abnormal: edema (Mild bilateral lower extremity edema) - Abdominal General gastrointestinal: Present: soft, tender (Mild midepigastric tenderness with palpation), non-distended Female genitourinary: Present: deferred - Rectal Rectal Exam: deferred Results - Labs CBC & Chem 7: 11/02/20 02:38 11/02/20 02:38 Labs: Abnormal lab results 11/01/20 11/01/20 11/02/20 Range/Units 14:46 19:46 02:38 RBC (3.65-5.03) M/mm3 Hct (30.3-42.9) % RDW (13.2-15.2) % [place] % (Auto) (0.0-7.3) % Eos % (Auto) (0.0-4.3) % APTT 81.6 H* (24.2-36.6) Sec. Heparin Anti-Xa Level 0.10 L 0.10 L (0.3-0.7) U.I./ml Chloride (98-107) mmol/L BUN (7-17) mg/dL ALT (7-56) units/L Albumin (3.9-5) g/dL 11/02/20 11/02/20 11/02/20 Range/Units 02:38 02:38 09:50 RBC 3.61 L (3.65-5.03) M/mm3 Hct 29.9 L (30.3-42.9) % RDW 16.8 H (13.2-15.2) % [place] % (Auto) 7.8 H (0.0-7.3) % Eos % (Auto) 5.0 H (0.0-4.3) % APTT (24.2-36.6) Sec. Heparin Anti-Xa Level 0.10 L (0.3-0.7) U.I./ml Chloride 107.2 H (98-107) mmol/L BUN 6 L (7-17) mg/dL ALT 6 L (7-56) units/L Albumin 3.4 L (3.9-5) g/dL - Imaging and Cardiology CT scan - abdomen: image reviewed Assessment and Plan The patient is a 50-year-old female with a history of bilateral pulmonary emboli. The patient does not relate a history of provoked DVT or PE. She has a history of uterine fibroids and had not had significant issues for years. She relays a history of bleeding that started again in May of this year. She states that she has had a significant amount of bleeding since starting the heparin drip during this admission. It is possible that her uterus may be significantly enlarged causing compression of her iliac veins which may have provoked a DVT and secondarily the PE. Additionally given the patient's significant amount of bleeding on the heparin drip she will not tolerate 6 months of anticoagulation. I will check bilateral venous duplex to evaluate for DVT. Additionally I will order a CTA of her abdomen pelvis with a venous phase to evaluate her uterus as well as to evaluate for iliac DVTs and compression of the iliac veins. If she has a fibroid uterus that is causing compression of the veins and she continues to have significant bleeding secondary to her fibroids she would likely require a gynecologic consultation to determine management of the fibroids. We will keep her on the heparin drip for now as long as she remains stable. I discussed this with the patient who expressed understanding and agrees with the plan.
--- NOTE | 2020-11-02 16:28 | Vascular Lab Report ---
DUPLEX DOPPLER LOWER EXTREMITY VEINS, BILATERAL INDICATION / CLINICAL INFORMATION: Known pulmonary embolism. TECHNIQUE: Duplex doppler imaging was performed through the veins of both lower extremities using venous maryam tristian and other maneuvers. COMPARISON: None available. FINDINGS: RIGHT COMMON FEMORAL VEIN: Negative. RIGHT FEMORAL VEIN: Negative. RIGHT POPLITEAL VEIN: Acute thrombus. RIGHT CALF VEINS: Negative. LEFT COMMON FEMORAL VEIN: Negative. LEFT FEMORAL VEIN: Negative. LEFT POPLITEAL VEIN: Negative. LEFT CALF VEINS: Negative. ADDITIONAL FINDINGS: None. IMPRESSION: 1. Acute DVT right popliteal vein. Signer Name: Luis Carlos Tran MD Signed: 11/02/2020 4:23 PM Workstation Name: [id number]
--- NOTE | 2020-11-02 19:19 | Progress Note ---
Assessment and Plan -- Acute pulmonary embolism IV heparin for now as patient also complains of vaginal bleeding IR consult placed Patient may not be a candidate for EKOS -- Hypokalemia Supplemented --Intermittent vaginal bleeding, likely due to uterine fibroid CT abdomen pelvis ordered, will follow --Normocytic anemia, likely chronic due to fibroid uterus Continue to monitor H&H -- DVT prophylaxis Patient on heparin drip and GI prophylaxis 11/02: Continue IV heparin drip, will follow IR recommendation. Ordered for CT abdomen pelvis -we will follow result. Monitor for H&H. Subjective Date of service: 11/02/20 Interval history: Patient seen and examined. Medical records and medication list reviewed. No acute event overnight noted by the RN. Patient denies any chest pain or difficulty breathing. Patient is tolerating diet. Patient complains of intermittent vaginal bleeding Discussed plan of care at bedside with patient. Objective - Exam Narrative Exam: GENERAL: Morbidly obese -[place] female lying on bed appeared to be in no discomfort. HEENT: Normocephalic. Atraumatic. No conjunctival congestion or icterus. Patient has moist mucous membranes. NECK: Supple. Trachea midline. CHEST/LUNGS: Clear to auscultated bilaterally, breathing nonlabored. No wheezes crackles or rhonchi. HEART/CARDIOVASCULAR: Regular in rate and rhythm. S1 and S2 positive. ABDOMEN: Abdomen is soft, nontender. Patient has normal bowel sounds. SKIN: There is no rash. Warm and dry. NEURO: No focal motor deficit. Follows command. MUSCULOSKELETAL: No joint effusion or tenderness. EXTRIMITY: No edema, no cyanosis or clubbing. PSYCH: Cooperative. - Constitutional Vitals: Vital Signs - 12hr 11/02/20 11/02/20 08:01 14:28 Pulse Rate 63 Pulse Rate [ 68 Apical] Respiratory 16 Rate O2 Sat by Pulse 99 Oximetry - Labs CBC & Chem 7: 11/03/20 14:02 11/03/20 04:53 Labs: Abnormal lab results 11/01/20 11/02/20 11/02/20 Range/Units 19:46 02:38 02:38 RBC 3.61 L (3.65-5.03) M/mm3 Hct 29.9 L (30.3-42.9) % RDW 16.8 H (13.2-15.2) % [place] % (Auto) 7.8 H (0.0-7.3) % Eos % (Auto) 5.0 H (0.0-4.3) % Heparin Anti-Xa Level 0.10 L 0.10 L (0.3-0.7) U.I./ml Chloride (98-107) mmol/L BUN (7-17) mg/dL ALT (7-56) units/L Albumin (3.9-5) g/dL 11/02/20 11/02/20 Range/Units 02:38 09:50 RBC (3.65-5.03) M/mm3 Hct (30.3-42.9) % RDW (13.2-15.2) % [place] % (Auto) (0.0-7.3) % Eos % (Auto) (0.0-4.3) % Heparin Anti-Xa Level 0.10 L (0.3-0.7) U.I./ml Chloride 107.2 H (98-107) mmol/L BUN 6 L (7-17) mg/dL ALT 6 L (7-56) units/L Albumin 3.4 L (3.9-5) g/dL HEART Score - HEART Score EKG: Non-specific Age: 45-65 Risk factors: 1-2 risk factors Troponin: Troponin T < 0.010 ng/mL (0.00-0.029) 11/01/20 01:28 Troponin: < normal limit
[2020-11-02] MEDS ORDERED: APIXABAN 5 MG TAB PO SCH (22:00)
[2020-11-03] MEDS: HYDROmorphone 1 MG/1 ML INJ IV PRN ×3 (00:05→20:50)
--- NOTE | 2020-11-03 00:34 | Cat Scan Report ---
CTA abdomen and pelvis with contrast INDICATION : History of PE with Uterine Fibroids. TECHNIQUE: Axial imaging performed through the abdomen and pelvis, with contrast bolus timing set to maximize opacification of the aorta. Bilateral lower extremity runoff was also performed. 3-plane M IP reformatted images were obtained. All CT scans at this location are performed using CT dose reduc tion for ALARA by means of automated exposure control. 100 mL of intravenous contrast administered. COMPARISON: CTA chest from yesterday and venous Doppler ultrasound from today FINDINGS: Angiographic findings: Aorta is well-opacified with normal appearance. No atherosclerotic disease, an eurysm, or dissection. Normal branch anatomy. No thromboembolic disease identified. There are acute-a ppearing PTE's in both lung bases and subsegmental distribution. 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 Of note, there is a large venous varix communicating between the left renal vein and the spleen suggesting a splenorenal shunt. Non-angiographic findings: Lungs/bones: There is mild streaky left basilar airspace disease which may reflect atelectasis or ea rly infarction change. A trace left-sided effusion is also present. Degenerative changes are present within the spine with prominent sclerosis involving the iliac sides of both SI joints of uncertain cl inical significance but overall nonaggressive appearance. Specifically there are degenerative changes but there is no erosive change to suggest a sacroiliitis. Abdomen/pelvis: The liver, spleen, pancreas, adrenals, kidneys, and proximal GI tract appear unremar kable. The gallbladder is not well-seen and may be surgically absent. Urinary bladder is unremarkable. No acute colonic abnormality in this patient with mild diverticulosi s. The appendix and terminal ileum appear normal. Uterus appears lobulated and heterogeneous which may reflect underlying fibroid disease. There is a s imple-appearing left adnexal cyst which measures 4.5 cm in maximal dimension on image #142 of series #8. A small simple left ovarian cyst is also present. IMPRESSION: 1. No acute arterial vascular abnormality. 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 2. Probable uterine fibroid disease with heterogeneous and slightly lobulated appearance of the uter us. No area of hyperenhancement or heterogeneous arterial enhancement is present to suggest an area o f hemorrhagic degeneration. 3. Simple left adnexal and ovarian cysts. Signer Name: Jose Pace MD Signed: 11/03/2020 12:30 AM Workstation Name: [id number]
[2020-11-03 05:25] LABS: Basophils # (Auto) 0.1 K/mm3 (0.0-0.1); Basophils % (Auto) 1.1 % (0.0-1.8); Eosinophils # (Auto) 0.4 K/mm3 (0.0-0.4); Eosinophils % (Auto) 7.9 % (0.0-4.3); Hematocrit 31.7 % (30.3-42.9); Hemoglobin 10.3 gm/dl (10.1-14.3); Lymphocytes # (Auto) 1.4 K/mm3 (1.2-5.4); Lymphocytes % (Auto) 30.1 % (13.4-35.0); Mean Corpuscular HGB Conc 32 % (30-34); Mean Corpuscular Volume 83 fl (79-97); Monocytes # (Auto) 0.4 K/mm3 (0.0-0.8); Monocytes % (Auto) 8.4 % (0.0-7.3); Platelet Count 267 K/mm3 (140-440); Red Blood Count 3.82 M/mm3 (3.65-5.03); Red Cell Distribution Width 16.7 % (13.2-15.2)
[2020-11-03 05:39] LABS: Blood Urea Nitrogen 7 mg/dL (7-17); Calcium 8.7 mg/dL (8.4-10.2); Hemolysis Index 5
[2020-11-03 05:41] LABS: BUN/Creatinine Ratio 10
[2020-11-03] MEDS: HEPARIN/ 0.45% NACL DRIP 25,000 UNIT/500 ML BAG IV SCH (11:45)
[2020-11-03 14:29] LABS: Hemoglobin 10.4 gm/dl (10.1-14.3)
[2020-11-03 14:41] LABS: INR 1.15 (0.87-1.13)
[2020-11-03 14:42] LABS: Partial Thromboplastin Time 59.3 Sec. (24.2-36.6)
--- NOTE | 2020-11-03 17:34 | Progress Note ---
Assessment and Plan -- Acute pulmonary embolism IV heparin for now as patient also complains of vaginal bleeding IR consult placed- not be a candidate for EKOS -- Hypokalemia Supplemented --Intermittent vaginal bleeding, likely due to uterine fibroid CT abdomen pelvis result noted, consulted obg/senior animator as patient having active spotting --Normocytic anemia, likely chronic due to fibroid uterus Continue to monitor H&H -- DVT prophylaxis Patient on heparin drip and GI prophylaxis 11/02: Continue IV heparin drip, will follow IR recommendation. Ordered for CT abdomen pelvis -we will follow result. Monitor for H&H. 11/03: patient having active vaginal spotting, will consult obg/senior animator before placing on oral AC. CT abd/pelvis; 1. No acute arterial vascular abnormality. 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 2. Probable uterine fibroid disease with heterogeneous and slightly lobulated appearance of the uterus. No area of hyperenhancement or heterogeneous arterial enhancement is present to suggest an area of hemorrhagic degeneration. 3. Simple left adnexal and ovarian cysts. Subjective Date of service: 11/03/20 Interval history: Patient seen and examined. Medical records and medication list reviewed. No acute event overnight noted by the RN. Patient denies any chest pain or difficulty breathing. Patient is tolerating diet. Patient complains of intermittent vaginal bleeding Discussed plan of care at bedside with patient. Objective - Exam Narrative Exam: GENERAL: Morbidly obese -[place]ic female lying on bed appeared to be in no discomfort. HEENT: Normocephalic. Atraumatic. No conjunctival congestion or icterus. Patient has moist mucous membranes. NECK: Supple. Trachea midline. CHEST/LUNGS: Clear to auscultated bilaterally, breathing nonlabored. No wheezes crackles or rhonchi. HEART/CARDIOVASCULAR: Regular in rate and rhythm. S1 and S2 positive. ABDOMEN: Abdomen is soft, nontender. Patient has normal bowel sounds. SKIN: There is no rash. Warm and dry. NEURO: No focal motor deficit. Follows command. MUSCULOSKELETAL: No joint effusion or tenderness. EXTRIMITY: No edema, no cyanosis or clubbing. PSYCH: Cooperative. - Constitutional Vitals: Vital Signs - 12hr 11/03/20 11/03/20 08:09 16:08 Temperature 98.9 F 98.6 F Pulse Rate 59 L 56 L Respiratory 20 18 Rate Blood Pressure 127/80 151/90 O2 Sat by Pulse 99 100 Oximetry - Labs CBC & Chem 7: 11/04/20 09:38 11/03/20 04:53 Labs: Abnormal lab results 11/02/20 11/03/20 11/03/20 Range/Units 19:36 04:53 14:02 MCH 27 L (28-32) pg RDW 16.7 H (13.2-15.2) % Bee % (Auto) 8.4 H (0.0-7.3) % Eos % (Auto) 7.9 H (0.0-4.3) % INR 1.15 H (0.87-1.13) APTT 59.3 H (24.2-36.6) Sec. Heparin Anti-Xa Level 1.04 H (0.3-0.7) U.I./ml HEART Score - HEART Score EKG: Non-specific Age: 45-65 Risk factors: 1-2 risk factors Troponin: Troponin T < 0.010 ng/mL (0.00-0.029) 11/01/20 01:28 Troponin: < normal limit
[2020-11-03] MEDS ORDERED: diphenhydrAMINE 50 MG/ML VIAL IV ONE (23:57)
[2020-11-04] MEDS: MORPHINE 2 MG/1 ML INJ IV PRN ×3 (07:05→22:39)
[2020-11-04] MEDS: HEPARIN/ 0.45% NACL DRIP 25,000 UNIT/500 ML BAG IV SCH (08:31)
[2020-11-04] MEDS: APIXABAN 5 MG TAB PO SCH ×2 (09:41→22:37)
[2020-11-04 10:52] LABS: Hematocrit 31.8 % (30.3-42.9); Hemoglobin 10.6 gm/dl (10.1-14.3)
--- NOTE | 2020-11-04 11:15 | Consultation ---
History of Present Illness Consult date: 11/04/20 Reason for consult: other (vaginal bleeding with new dx pulmonary embolism) History of present illness: 51 yo c/b hx joint disease, hx myomectomy for uterine fibroids and transfusion in 2000 presenting with SOB x 2 weeks and back pain started Saturday with worsened until presentation on Saturday to ED. Patient reports that she was recently seen in ED 09/20/2020 for abdominal pain with workup c/w possible UTI and fibroid pain with normal Hgb and discharge home. Patient reports hx of having 5 months of amenorrhrea in the past year, possibly perimenopausal before having another irregular cycle. Hx heavy cyclic menses prior. 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 Reports recently eating pure starch. Denies other pica related eating habits. Past History Past Medical History: other (joint disease) Past Surgical History: cholecystectomy (open), section (x2), myomectomy, other (breast reduction, hernia surgery) TRANSFER ENGINEER History: fibroids - Obstetrical History : 3 Para: 3 Number of Living Children: 3 Medications and Allergies Allergies Allergy/AdvReac Type Severity Reaction Status Date / Time acetaminophen [From Percocet] Allergy Itching Verified 11/20/18 14:46 hydromorphone Allergy Itching Verified 11/04/20 00:40 oxycodone [From Percocet] Allergy Itching Verified 11/20/18 14:46 Penicillins Allergy Itching Verified 11/20/18 14:46 propoxyphene Allergy Itching Verified 11/20/18 14:46 [From Darvocet-N] Home Medications Medication Instructions Recorded Confirmed Last Taken Type Carbamide Peroxide [Ear Wax 15 ml OT BID 4 Days #1 bottle 11/20/18 Unknown Rx Removal] Loperamide HCl [Imodium A-D] 2 mg PO DAILY #14 capsule 11/20/18 Unknown Rx Neomy/Polymyx B/Hc (Otic) Soln 4 drops TID 5 Days #1 bottle 11/20/18 Unknown Rx [Cortisporin (Otic) Soln] Ondansetron [Zofran Odt] 4 mg PO Q8HR PRN #8 tab.rapdis 11/20/18 Unknown Rx Cyclobenzaprine [Flexeril] 10 mg PO QHS PRN #20 tablet 03/17/19 Unknown Rx Naproxen [Naprosyn] 500 mg PO BID #30 tablet 03/17/19 Unknown Rx Ferrous Gluconate [Ferrous 324 mg PO TID #20 tablet 09/20/20 Unknown Rx Gluconate 324 MG] Nitrofurantoin Leake/M-Cryst 100 mg PO Q12HR #14 capsule 09/20/20 Unknown Rx [Macrobid CAP] traMADoL [Ultram 50 MG tab] 50 mg PO Q6HR PRN #10 tablet 09/20/20 Unknown Rx Active Meds: Active Medications Acetaminophen (Tylenol) 650 mg PO Q4H PRN PRN Reason: Pain MILD(1-3)/Fever >100.5/CABRERA Apixaban (Eliquis) 10 mg PO Q12HR [facility]; Protocol Last Admin: 11/04/20 09:41 Dose: 10 mg Documented by: Morphine Sulfate (Morphine) 2 mg IV Q4H PRN PRN Reason: Pain, Moderate (4-6) Last Admin: 11/04/20 07:05 Dose: 2 mg Documented by: Ondansetron HCl (Zofran) 4 mg IV Q8H PRN PRN Reason: Nausea And Vomiting Last Admin: 11/02/20 17:42 Dose: 4 mg Documented by: Sodium Chloride (Sodium Chloride Flush Syringe 10 Ml) 10 ml IV BID [facility] Last Admin: 11/04/20 10:11 Dose: 10 ml Documented by: Sodium Chloride (Sodium Chloride Flush Syringe 10 Ml) 10 ml IV PRN PRN PRN Reason: LINE FLUSH Review of Systems All systems: negative (expect HPI) - Vital Signs Vital signs: Vital Signs Temp Pulse Resp BP Pulse Ox 99.8 F H 76 17 142/78 98 10/31/20 22:11 10/31/20 22:11 10/31/20 22:11 10/31/20 22:11 10/31/20 22:11 Temp Pulse Resp BP Pulse Ox 98.7 F 48 L 16 126/65 100 11/04/20 08:31 11/04/20 10:00 11/04/20 08:31 11/04/20 08:31 11/04/20 08:31 - Physical Exam Cardiovascular: Regular rate Lungs: Positive: Clear to auscultation, Normal air movement Abdomen: Positive: normal appearance, normal bowel sounds, other (mildly enlarged uterus) Results Result Diagrams: 11/04/20 09:38 11/03/20 04:53 Abnormal lab results 11/03/20 11/03/20 11/04/20 Range/Units 14:02 19:03 04:42 INR 1.15 H (0.87-1.13) APTT 59.3 H (24.2-36.6) Sec. Heparin Anti-Xa Level 1.44 H 0.72 H (0.3-0.7) U.I./ml All other labs normal. CT scan - abdomen: other (+ fibroid uterus with possible adnexal cyst) Assessment and Plan - Patient Problems (1) Uterine fibroid Current Visit: Yes Status: Acute Plan to address problem: --Given only slightly enlarged size of uterus, <1000cc, would not favor uterus as primary cause of PE. Neg for iliac vascular abnormalities/narrowing in the abdomen/pelvis imaging. Unlikely May Thurner syndrome. Patient considering uterine fibroid embolization, endometrial ablation, and surgery as outpatient if bleeding persistent. --Patient with what appears to be more perimenopausal bleeding patterm. Only mildly anemia. No indication for transfusion at this time. Given acute PE, decreased possibilities for most medical management given increasing thrombosis risk. --Can consider ullipristal 30mg qday for heavy bleeding, monitor for hepatotoxicity --Can follow up as outpatient with TRANSFER ENGINEER of choosing or [facility] --[facility] associate professor of education available for questions/concerns (2) Acute pulmonary embolism Current Visit: Yes Status: Acute Qualifiers: Acute cor pulmonale presence: without acute cor pulmonale Plan to address problem: --Care per primary team. Agree with anticoagulation therapy. Would not recommend hormonal therapies for bleeding given thrombosis risks
[2020-11-04] MEDS ORDERED: LORazepam 1 MG TAB PO PRN (12:46)
--- NOTE | 2020-11-04 12:47 | Discharge Summary ---
Providers - Providers Date of Admission: 11/02/20 10:11 Date of discharge: 11/04/20 Attending physician: RENEE BANEGAS 11/02/20 01:05 Consult to Physician [CONS] Routine Comment: Consulting Provider: NICHOLAS MORILLO Physician Instructions: Reason For Exam: Acute pulmonary embolism/EKOS?? 11/03/20 15:28 Consult to Physician [CONS] Routine Comment: Consulting Provider: SAMEER BROTHERS Physician Instructions: Reason For Exam: uterine fibroid with PE and bleeding Primary care physician: CUSTOMER EXPERIENCE RETAIL CLERK Hospitalization Condition: Stable Hospital course: Discharge diagnosis: -- Acute pulmonary embolism --Right popliteal vein DVT -- Hypokalemia, Supplemented --Intermittent vaginal bleeding, likely due to uterine fibroid CT abdomen pelvis result noted, consulted obg/cash van salesperson recommended outpt f/u --Normocytic anemia, likely chronic due to fibroid uterus, stable H&H Disposition: DC-30 STILL A PATIENT Time spent for discharge: 34 minutes Core Measure Documentation - Palliative Care Palliative Care/ Comfort Measures: Not Applicable - Core Measures Any of the following diagnoses?: none Exam - Physical Exam Narrative exam: GENERAL: Morbidly obese -[place] female lying on bed appeared to be in no discomfort. HEENT: Normocephalic. Atraumatic. No conjunctival congestion or icterus. Patient has moist mucous membranes. NECK: Supple. Trachea midline. CHEST/LUNGS: Clear to auscultated bilaterally, breathing nonlabored. No wheezes crackles or rhonchi. HEART/CARDIOVASCULAR: Regular in rate and rhythm. S1 and S2 positive. ABDOMEN: Abdomen is soft, nontender. Patient has normal bowel sounds. SKIN: There is no rash. Warm and dry. NEURO: No focal motor deficit. Follows command. MUSCULOSKELETAL: No joint effusion or tenderness. EXTRIMITY: No edema, no cyanosis or clubbing. PSYCH: Cooperative. - Constitutional Vitals: Temp Pulse Resp BP Pulse Ox 98.9 F 54 L 18 125/74 100 11/04/20 11:40 11/04/20 11:40 11/04/20 11:40 11/04/20 11:40 11/04/20 11:40 Plan Activity: advance as tolerated Weight Bearing Status: Weight Bear as Tolerated Diet: low fat, low salt Follow up with: PRIMARY CAREMD [Primary Care Provider] - 3-5 Days Prescriptions: Apixaban [Eliquis] 5 mg PO Q12HR #60 tablet Ferrous Gluconate [Ferrous Gluconate 324 MG] 324 mg PO TID #90 tablet
--- NOTE | 2020-11-04 12:55 | Progress Note ---
Assessment and Plan The patient has a right popliteal vein DVT. Her CT of her abdomen and pelvis reveals a fibroid uterus however this is not significantly enlarged. 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 This leads to a diagnosis of a probable hypercoagulable state. The patient had an unprovoked DVT with a PE likely secondary to her hypercoagulable state. Given her history of bleeding fibroids that has increased with anticoagulation she would likely require some treatment of the fibroids to prevent acute blood loss anemia. She is not a candidate for hormone therapy as this will worsen her hypercoagulable state. She may be a candidate for uterine fibroid embolization however she requires an MRI to determine this. I recommend that she have this work-up fairly urgently and have her fibroids treated without significant delay to prevent continued bleeding. I discussed this plan with the patient who expressed understanding and agrees with the plan. The patient did state that she has had a previous MRI and has claustrophobia. I will pretreat her with Ativan in hopes that she will tolerate the MRI and the planning and work-up for a UFE. Subjective Date of service: 11/04/20 Interval history: The patient states she still has some shortness of breath and occasional chest p ain. She also complains of increased vaginal bleeding. She has no additional complaints at this time. Objective - Constitutional Vitals: Vital Signs - 12hr 11/04/20 11/04/20 11/04/20 04:11 08:31 10:00 Temperature 99.0 F 98.7 F Pulse Rate 51 L 54 L 48 L Respiratory 16 16 Rate Blood Pressure 121/51 126/65 O2 Sat by Pulse 98 100 Oximetry 11/04/20 11:40 Temperature 98.9 F Pulse Rate 54 L Respiratory 18 Rate Blood Pressure 125/74 O2 Sat by Pulse 100 Oximetry General appearance: Present: no acute distress - Neck Neck: supple - Respiratory Respiratory effort: normal - Cardiovascular Rhythm: regular Extremities: no ischemia, pulses intact Extremity abnormal: edema (Bilateral lower extremities) - Gastrointestinal General gastrointestinal: Present: soft, non-distended - Labs CBC & Chem 7: 11/04/20 09:38 11/03/20 04:53 Labs: Abnormal lab results 11/03/20 11/03/20 11/04/20 Range/Units 14:02 19:03 04:42 INR 1.15 H (0.87-1.13) APTT 59.3 H (24.2-36.6) Sec. Heparin Anti-Xa Level 1.44 H 0.72 H (0.3-0.7) U.I./ml - Imaging and cardiology CT scan - abdomen: image reviewed Venous US: image reviewed Medications & Allergies - Medications Allergies/Adverse Reactions: Allergies acetaminophen [From Percocet] Allergy (Verified 11/20/18 14:46) Itching hydromorphone Allergy (Verified 11/04/20 00:40) Itching oxycodone [From Percocet] Allergy (Verified 11/20/18 14:46) Itching Penicillins Allergy (Verified 11/20/18 14:46) Itching propoxyphene [From Darvocet-N] Allergy (Verified 11/20/18 14:46) Itching Home Medications: Home Medications Medication Instructions Recorded Confirmed Last Taken Type Apixaban [Eliquis] 5 mg PO Q12HR #60 tablet 11/04/20 Unknown Rx Ferrous Gluconate [Ferrous 324 mg PO TID #90 tablet 11/04/20 Unknown Rx Gluconate 324 MG] Active Medications: Generic Name Dose Route Start Last Admin Trade Name Freq PRN Reason Stop Dose Admin Acetaminophen 650 mg 11/02/20 01:05 Tylenol PO Q4H PRN Pain MILD(1-3)/Fever >100.5/CABRERA Apixaban 10 mg 11/04/20 10:00 11/04/20 09:41 Eliquis PO 11/10/20 22:01 10 mg Q12HR CATRACHITO Administration Protocol Apixaban 5 mg 11/11/20 10:00 Eliquis PO Q12HR CATRACHITO Protocol Lorazepam 1 mg 11/04/20 12:46 Ativan PO Q4H PRN Anxiety Morphine Sulfate 2 mg 11/03/20 23:56 11/04/20 07:05 Morphine IV 2 mg Q4H PRN Administration Pain, Moderate (4-6) Ondansetron HCl 4 mg 11/02/20 01:05 11/02/20 17:42 Zofran IV 4 mg Q8H PRN Administration Nausea And Vomiting Sodium Chloride 10 ml 11/02/20 10:00 11/04/20 10:11 Sodium Chloride Flush Syringe 10 Ml IV 10 ml BID CATRACHITO Administration Sodium Chloride 10 ml 11/02/20 01:05 Sodium Chloride Flush Syringe 10 Ml IV PRN PRN LINE FLUSH HEART Score - HEART Score EKG: Non-specific Age: 45-65 Risk factors: 1-2 risk factors Troponin: Troponin T < 0.010 ng/mL (0.00-0.029) 11/01/20 01:28 Troponin: < normal limit
--- NOTE | 2020-11-04 14:57 | Operative Report ---
Operative Report Operative Report: Date of Procedure: 11/04/2020 Pre-operative Diagnosis: Complications of Dialysis Access Post-operative Diagnosis: Same Procedure(s): 1. Access Left Arm AV Graft With 7 [place] Sheath Venous 2. Access Left Arm AV Graft with 6 [place] Sheath Arterial 3. Diagnostic Fistulogram with Central Venogram 4. Percutaneous Mechanical Thrombectomy of Left Arm AV Graft With Trertolla Device 5. Angioplasty and Stent of Left Arm AV Graft with 8 x 80 [place] Balloon, 8 x 40 [place] Balloon, and 8 x 10 cm [place] Stent Graft 6. Catheter in Left Brachial Artery 7. Diagnostic Left Lower Extremity Arteriogram 8. Radiologic Supervision with Interpretation 9. Monitored Moderate Sedation (Total Anesthesia Time: Surgeon: Tom Jones M.D. Orange Picker Machine Operator: [] Anesthesia: [] EBL: [] Counts: [] Complications: [] Condition: [] Findings: [] Specimen: [] Indication: [] Description of Procedure: []
[2020-11-04] MEDS ORDERED: LORazepam 2 MG/ML VIAL IV PRN (17:33)
[2020-11-04] MEDS ORDERED: MAGNESIUM HYDROXIDE (MOM) ORAL LIQD UDC PO PRN (22:44)
--- NOTE | 2020-11-05 02:52 | Progress Note ---
Assessment and Plan -- Acute pulmonary embolism --Right LE DVT s/p IV heparin now placed on eliquis -- Hypokalemia Supplemented --Intermittent vaginal bleeding, likely due to uterine fibroid CT abdomen pelvis result noted, consulted obg/echocardiography tech as patient having active spotting no plan for hysterectomy, may need uterine arterial embolectomy as patient will need AC for Acute PE/DVT MRI/MRA ordered --Normocytic anemia, likely chronic due to fibroid uterus Continue to monitor H&H -- DVT prophylaxis Patient on heparin drip and GI prophylaxis 11/02: Continue IV heparin drip, will follow IR recommendation. Ordered for CT abdomen pelvis -we will follow result. Monitor for H&H. 11/03: patient having active vaginal spotting, will consult obg/echocardiography tech before placing on oral AC. CT abd/pelvis; 1. No acute arterial vascular abnormality. 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 2. Probable uterine fibroid disease with heterogeneous and slightly lobulated appearance of the uterus. No area of hyperenhancement or heterogeneous arterial enhancement is present to suggest an area of hemorrhagic degeneration. 3. Simple left adnexal and ovarian cysts. 11/04: ordered MRI/MRA for possible Uterine artery embolectomy which may need to be done if patient develop severe bleeding. But patient could not complete the test today, plan to do MRI tomorrow per IR and d/c after MRI with outpt f/u. Subjective Date of service: 11/04/20 Interval history: Patient seen and examined. Medical records and medication list reviewed. No acute event overnight noted by the RN. Patient denies any chest pain or difficulty breathing. Patient is tolerating diet. Patient complains of intermittent vaginal bleeding MRI ordered but she was refused even after ativan as she was claustrophobic Objective - Exam Narrative Exam: GENERAL: Morbidly obese -Bur[place] female lying on bed appeared to be in no discomfort. HEENT: Normocephalic. Atraumatic. No conjunctival congestion or icterus. Patient has moist mucous membranes. NECK: Supple. Trachea midline. CHEST/LUNGS: Clear to auscultated bilaterally, breathing nonlabored. No wheezes crackles or rhonchi. HEART/CARDIOVASCULAR: Regular in rate and rhythm. S1 and S2 positive. ABDOMEN: Abdomen is soft, nontender. Patient has normal bowel sounds. SKIN: There is no rash. Warm and dry. NEURO: No focal motor deficit. Follows command. MUSCULOSKELETAL: No joint effusion or tenderness. EXTRIMITY: No edema, no cyanosis or clubbing. PSYCH: Cooperative. - Constitutional Vitals: Vital Signs - 12hr 11/04/20 11/04/20 11/04/20 16:04 19:43 23:30 Temperature 98.6 F 99.3 F 98.2 F Pulse Rate 54 L 62 60 Respiratory 18 20 20 Rate Blood Pressure 139/67 127/55 136/74 O2 Sat by Pulse 100 100 100 Oximetry - Labs CBC & Chem 7: 11/04/20 09:38 11/03/20 04:53 Labs: Abnormal lab results 11/04/20 11/04/20 Range/Units 04:42 14:50 Heparin Anti-Xa Level 0.72 H 1.77 H (0.3-0.7) U.I./ml HEART Score - HEART Score EKG: Non-specific Age: 45-65 Risk factors: 1-2 risk factors Troponin: Troponin T < 0.010 ng/mL (0.00-0.029) 11/01/20 01:28 Troponin: < normal limit
[2020-11-05] MEDS: MORPHINE 2 MG/1 ML INJ IV PRN ×2 (05:55→12:14)
[2020-11-05 06:22] LABS: Hematocrit 32.1 % (30.3-42.9); Hemoglobin 10.7 gm/dl (10.1-14.3)
[2020-11-05] MEDS: APIXABAN 5 MG TAB PO SCH (09:22)
--- NOTE | 2020-11-05 11:45 | Progress Note ---
Assessment and Plan Patient is doing well Breathing is nonlabored Hgb stable on oral anticoagulation Okay to discharge from Vascular Surgery Standpoint Follow up in my office in 2 weeks to discuss possible UFE Subjective Date of service: 11/05/20 Interval history: No complaints Objective - Constitutional Vitals: Vital Signs - 12hr 11/05/20 11/05/20 04:34 08:04 Temperature 98.6 F 98.8 F Pulse Rate 55 L 60 Respiratory 20 20 Rate Blood Pressure 121/64 112/59 O2 Sat by Pulse 98 96 Oximetry General appearance: Present: no acute distress - Respiratory Respiratory effort: normal - Labs CBC & Chem 7: 11/05/20 05:29 11/03/20 04:53 Labs: Abnormal lab results 11/04/20 Range/Units 14:50 Heparin Anti-Xa Level 1.77 H (0.3-0.7) U.I./ml Medications & Allergies - Medications Allergies/Adverse Reactions: Allergies acetaminophen [From Percocet] Allergy (Verified 11/20/18 14:46) Itching hydromorphone Allergy (Verified 11/04/20 00:40) Itching oxycodone [From Percocet] Allergy (Verified 11/20/18 14:46) Itching Penicillins Allergy (Verified 11/20/18 14:46) Itching propoxyphene [From Darvocet-N] Allergy (Verified 11/20/18 14:46) Itching Home Medications: Home Medications Medication Instructions Recorded Confirmed Last Taken Type Apixaban [Eliquis] 5 mg PO Q12HR #60 tablet 11/04/20 Unknown Rx Ferrous Gluconate [Ferrous 324 mg PO TID #90 tablet 11/04/20 Unknown Rx Gluconate 324 MG] Active Medications: Generic Name Dose Route Start Last Admin Trade Name Freq PRN Reason Stop Dose Admin Acetaminophen 650 mg 11/02/20 01:05 Tylenol PO Q4H PRN Pain MILD(1-3)/Fever >100.5/CABRERA Apixaban 10 mg 11/04/20 10:00 11/05/20 09:22 Eliquis PO 11/10/20 22:01 10 mg Q12HR CATRACHITO Administration Protocol Apixaban 5 mg 11/11/20 10:00 Eliquis PO Q12HR [facility]O Protocol Lorazepam 1 mg 11/04/20 17:33 11/05/20 09:21 Ativan IV 1 mg Q1H PRN Administration Anxiety Magnesium Hydroxide 30 ml 11/04/20 22:44 Milk Of Magnesia PO QDAY PRN constipation Morphine Sulfate 2 mg 11/03/20 23:56 11/05/20 05:55 Morphine IV 2 mg Q4H PRN Administration Pain, Moderate (4-6) Ondansetron HCl 4 mg 11/02/20 01:05 11/02/20 17:42 Zofran IV 4 mg Q8H PRN Administration Nausea And Vomiting Sodium Chloride 10 ml 11/02/20 10:00 11/05/20 09:22 Sodium Chloride Flush Syringe 10 Ml IV 10 ml BID CATRACHITO Administration Sodium Chloride 10 ml 11/02/20 01:05 Sodium Chloride Flush Syringe 10 Ml IV PRN PRN LINE FLUSH HEART Score - HEART Score EKG: Non-specific Age: 45-65 Risk factors: 1-2 risk factors Troponin: Troponin T < 0.010 ng/mL (0.00-0.029) 11/01/20 01:28 Troponin: < normal limit
--- NOTE | 2020-11-05 12:05 | Magnetic Resonance Report ---
MR pelvis wo/w con INDICATION: Bleeding from fibroid uterus. TECHNIQUE: Multiplanar, multisequence MR images were obtained. COMPARISON: Pelvic CT 11/02/2020 FINDINGS: This study was performed with and without IV contrast. Several T2 hypointense intramural and submucos al fibroids are noted. The largest index lesion seen within the anterior uterine body measures 1.6 cm on sagittal image 21. The junctional zone is thickened measuring 1.6 cm characteristic for uterine a denomyosis. A 5.4 x 3.1 cm left ovarian cyst is present. There is enhancement of several uterine fibr oids on postcontrast images IMPRESSION: 1. Uterine adenomyosis and multiple uterine fibroids 2. 5.4 cm left ovarian cyst Postmenopausal women Cysts >1 and 7 cm: Should be described in the imaging report with statement that they are almost cert ainly benign; yearly follow-up, at least initially, with US recommended. Some practices may opt to in crease the lower size threshold for follow-up from 1 cm to as high as 3 cm. One may opt to continue f ollow-up annually or to decrease the frequency of follow-up once stability or decrease in size has be en confirmed. Cysts in the larger end of this range should still generally be followed on a regular b asis. Signer Name: Issa Ordonez MD Signed: 11/05/2020 12:00 PM Workstation Name: [id number]
--- NOTE | 2020-11-05 15:49 | Discharge Summary ---
Providers - Providers Date of Admission: 11/02/20 10:11 Date of discharge: 11/05/20 Attending physician: TOM FERRER 11/02/20 01:05 Consult to Physician [CONS] Routine Comment: Consulting Provider: NICHOLAS MORILLO Physician Instructions: Reason For Exam: Acute pulmonary embolism/EKOS?? 11/03/20 15:28 Consult to Physician [CONS] Routine Comment: Consulting Provider: SAMEER BROTHERS Physician Instructions: Reason For Exam: uterine fibroid with PE and bleeding Primary care physician: [employer] [facility] Hospitalization Condition: Stable Hospital course: ischarge diagnosis: -- Acute pulmonary embolism --Right popliteal vein DVT -- Hypokalemia, Supplemented --Intermittent vaginal bleeding, likely due to uterine fibroid CT abdomen pelvis result noted, consulted obg/cement paver recommended outpt f/u --Normocytic anemia, likely chronic due to fibroid uterus, stable H&H Patient to follow-up with Dr. Tom Jones outpatient in 2 weeks for evaluation of uterine embolization. Disposition: TO HOME OR SELFCARE Core Measure Documentation - Palliative Care Palliative Care/ Comfort Measures: Not Applicable - Core Measures Any of the following diagnoses?: DVT/PE, none - VTE Discharge Requirements Deep Vein Thrombosis/Pulmonary Embolism Present on Admission: Yes Has pt received <5 days of overlap therapy or INR<2.0: Yes (Patient) Anticoagulant overlap therapy prescribed at discharge: Yes (Patient receiving Eliquis) Exam - Constitutional Vitals: Temp Pulse Resp BP Pulse Ox 98.3 F 75 20 148/88 96 11/05/20 11:49 11/05/20 11:49 11/05/20 11:49 11/05/20 11:49 11/05/20 11:49 General appearance: Present: no acute distress, well-nourished - EENT Eyes: Present: PERRL ENT: hearing intact, clear oral mucosa - Neck Neck: Present: supple, normal ROM - Respiratory Respiratory effort: normal Respiratory: bilateral: CTA - Cardiovascular Heart Sounds: Present: S1 & S2. Absent: rub, click - Extremities Extremities: pulses symmetrical, No edema Peripheral Pulses: within normal limits - Abdominal General gastrointestinal: Present: soft, non-tender, non-distended, normal bowel sounds Female genitourinary: Present: normal - Integumentary Integumentary: Present: clear, warm, dry - Musculoskeletal Musculoskeletal: gait normal, strength equal bilaterally - Psychiatric Psychiatric: appropriate mood/affect, intact judgment & insight - Neurologic Neurologic: CNII-XII intact, moves all extremities Plan Activity: no restrictions, other (Follow-up with Dr. Tom Jones vascular in 2 weeks.) Weight Bearing Status: Full Weight Bearing Diet: regular Follow up with: PRIMARY CARE, [Primary Care Provider] - 3-5 Days Prescriptions: Apixaban [Eliquis] 5 mg PO Q12HR #60 tablet Apixaban [Eliquis] 10 mg PO Q12HR #60 tablet Ferrous Gluconate [Ferrous Gluconate 324 MG] 324 mg PO TID #90 tablet
[2020-11-05 16:13] VITALS: BP 143/93
[2020-11-11] MEDS ORDERED: APIXABAN 5 MG TAB PO SCH (10:00)
== END 2020-11-05 18:27 | disposition home or self-care (01) | DRG 176 ==
LOC: ED 21:22 → 4A 11-01 12:23 → OBSVTOIN 11-02 10:11
PROVIDERS: ADMIT Internal Medicine; ATTEND Internal Medicine
DX: I26.99 Other pulmonary embolism without acute cor pulmonale (principal); I82.431 Acute embolism and thrombosis of right popliteal vein; E87.6 Hypokalemia; F17.200 Nicotine dependence, unspecified, uncomplicated; Z90.49 Acquired absence of other specified parts of digestive tract; D64.9 Anemia, unspecified; N83.292 Other ovarian cyst, left side; D25.9 Leiomyoma of uterus, unspecified; Z88.6 Allergy status to analgesic agent; Z88.5 Allergy status to narcotic agent; Z88.0 Allergy status to penicillin; Z88.8 Allergy status to other drugs, medicaments and biological substances
CPT/HCPCS: 36415; 71046; 71275; 72197; 74174; 80048; 80053; 83036; 84484; 85014; 85018; 85025; 85049; 85520; 85610; 85730; 93005; 93970; 96365; 96375; G0378; A9577; J1170; J1200; J1644; J1885; J2060; J2270; J2405; Q9967